=== PATIENT | male | born 1990 | race Caucasian/White ===

== ENCOUNTER 2019-08-13 21:54 | Emergency (ER) | payer BC, SELFPAY ==
--- NOTE | ~2019-08-13 | XR_ITS ---
EXAMINATION: XR knee LT min 4V DATE: 08/13/2019 22:15 INDICATION: Left knee injury and pain. TECHNIQUE: 4 views of left knee were obtained. COMPARISON: None. FINDINGS: There is a displaced fracture fragment in the intercondylar notch. There is mild osteoarthr itis of patellofemoral compartment. There is a large knee joint effusion. IMPRESSION: 1. Displaced fracture fragment in the intercondylar notch, which may be from the intercondylar eminen ce of proximal tibia. 2. Mild left knee osteoarthritis. 3. Large left knee joint effusion. Reviewed, dictated and finalized at location A. IMPRESSION: 1. Displaced fracture fragment in the intercondylar notch, which may be from th e intercondylar eminence of proximal tibia. 2. Mild left knee osteoarthritis. 3. Large left knee joint effusion.
[2019-08-13 21:58] VITALS: BP 158/96; PULSE 120; RESP 20; TEMP 36.6; O2SAT 95
--- NOTE | 2019-08-13 23:23 | ED.LOWEXIN ---
HPI - Extremity Injury (Lower) General Chief Complaint: Extremity Injury, Lower Stated Complaint: Knee Time Seen by Provider: 08/13/19 22:43 Source: RN notes reviewed History of Present Illness HPI Narrative: Patient presents emergency department from home for left knee pain. Patient states that just prior to arrival his dog he got out he was out looking for his dog in the [place] when he stepped into a hole twisting his left knee. He states that time he had immediate pain. He states he felt like his knee popped out of place and then popped back into place. States that a history of similar episode while playing soccer approximately 10 years ago. States that since that time he has had pain with walking on his knee he states it hurts to fully extend his knee or to flex his knee denies any other trauma or injury he denies any numbness or tingling in the extremity Related Data Allergies Allergy/AdvReac Type Severity Reaction Status Date / Time Penicillins Allergy Unknown Unknown Verified 08/13/19 22:02 Sulfa (Sulfonamide Allergy Unknown Unknown Verified 08/13/19 22:02 Antibiotics) Review of Systems Review of Systems: Narrative: Gen.: Denies fevers or chills Musculoskeletal: See HPI Neuro: Denies numbness, tingling, weakness Skin: Denies rash Endo: Denies DM PMFSH Past Medical History Medical History (Updated 08/13/19 @ 23:29 by Eleazar Burdick DO) Patient denies significant medical history Family History Family History (Updated 08/01/14 @ 15:51 by DOCTOR UNKNOWN) Other Cerebrovascular accident Diabetes mellitus Family history of arthritis Family history of malignant neoplasm Hypertension Social History Social History Smoking status: Never smoker Second hand tobacco smoke exposure: No Alcohol intake: never Gender identity (if verbalized by the patient): Male Exam Narrative: Exam Narrative: APPEARANCE: No acute distress, nontoxic, resting in bed Eyes: EOMI HEENT: Normocephalic, atraumatic, RESPIRATORY: No respiratory distress MUSCULOSKELETAl: Tender palpation of the left anterior lateral medial knee swelling present with no ecchymosis pain with flexion greater than 45 degrees in full extension no tenderness of the left ankle or hip, dorsalis pedis pulse 2+ left lower extremity neurovascular intact NEURO: Awake and alert. Following commands, speech normal, no focal deficits SKIN:: Warm, dry. Normal Color no rash or lesions Course Course Emergency Course: Discussed with Dr. Shukla presentation and work-up. This time recommends Barrett wrap and crutches with follow-up as an outpatient Discussed with patient results of workup and diagnosis. Discussed need for follow-up with primary care, proper use of medication, and reasons to return to the emergency department. Patient understands and agrees to current treatment plan Vital Signs Vital signs: Vital Signs Temperature 97.8 F 08/13/19 21:58 Pulse Rate 120 H 08/13/19 21:58 Respiratory Rate 08/13/19 21:58 Blood Pressure 158/96 H 08/13/19 21:58 Pulse Oximetry 95 08/13/19 21:58 Temperature 97.8 F 08/13/19 21:58 Pulse Rate 120 H 08/13/19 21:58 Respiratory Rate 08/13/19 21:58 Blood Pressure 158/96 H 08/13/19 21:58 Pulse Oximetry 95 08/13/19 21:58 MDM - Extremity Injury (Lower) Imaging Data Attestation: I personally reviewed and interpreted this imaging study as follows: My impression: Knee x-ray reviewed by myself shows no acute process Discharge Plan Discharge Clinical Impression: Left knee sprain Patient Disposition: Home, Self-Care Condition: Stable Instructions: Antibiotic Form, Knee Pain (ED) Additional Instructions: Return for increasing pain numbness or tingling in the extremity or any other symptoms of concern Prescriptions: New ibuprofen [IBU] 600 mg tablet 600 mg PO Q6H PRN (Reason: pain) Qty: 20 RF: 0 Follow-up/Refe
[2019-08-14 00:04] VITALS: BP 126/59; PULSE 102; RESP 16; O2SAT 99
--- NOTE | 2019-08-14 08:32 | PC.NURSE ---
0776 CONTACTED PT @[phone] INFORMED OF NEED TO RETURN TO ED FOR KNEE IMMOBILIZER PER OVER-READ OF XRAY.
--- NOTE | 2019-08-14 09:05 | PC.NURSE ---
patient arrives in the ED after receiving a call to come back for a knee immobilizer per radiologist. Patient arrives at 0900 and knee immoblizer placed on left knee with patient education provided. Patient has no questions or concerns at this time.
== END 2019-08-14 00:06 | disposition home or self-care (01) ==
PROVIDERS: Emergency Provider Emergency Medicine
DX: S83.92XA Sprain of unspecified site of left knee, initial encounter (principal); X50.9XXA Other and unspecified overexertion or strenuous movements or postures, initial encounter
CPT/HCPCS: 73564; 99283; A9270

== ENCOUNTER 2019-08-27 12:41 | Outpatient (CLI) | payer BC, SELFPAY ==
--- NOTE | ~2019-08-27 | MR_ITS ---
EXAMINATION: MR knee LT wo con DATE: 08/27/2019 13:49 INDICATION: Left knee injury and pain and swelling. TECHNIQUE: Magnetic resonance imaging (MRI) of the left knee was performed without intravenous contra st. Sequences included axial PD-weighted FS FSE, coronal PD-weighted FSE and PD-weighted FS FSE, sagi ttal PD-weighted FSE, and sagittal T2-weighted FS FSE. COMPARISON: Left knee radiograph 08/14/2019 FINDINGS: Medial compartment: Medial meniscus is normal. There is cartilage surface irregularity of tibial condyle and femoral cond yle. Lateral compartment: Lateral meniscus is normal. There is shallow partial-thickness cartilage loss of femoral condyle medi ally. Tibial cartilage is normal. Patellofemoral compartment: Patellar cartilage is normal. Trochlear cartilage is normal. Ligaments and tendons: There is an avulsion fracture of the intercondylar eminence of proximal tibia at the footplate of the anterior cruciate ligament with 7 mm displacement. Posterior cruciate ligament is intact. Medial col lateral ligament and lateral collateral ligament complex are intact. There is mild patellar tendinopa thy. Fluid: There is a large lipohemarthrosis. Osseous/other: There is a subchondral fracture of lateral tibial condyle involving the posterior articular surface w ith less than 2 mm depression. There is bone marrow edema involving posterior aspects of medial and l ateral tibial condyles. There is bone marrow edema involving the notch of lateral femoral condyle. IMPRESSION: 1. Displaced avulsion fracture of intercondylar eminence at the footplate of the anterior cruciate li gament. 2. Fracture of posterior aspect of lateral tibial plateau with less than 2 mm depression. 3. Mild chondrosis of medial and lateral compartments. 4. Large lipohemarthrosis. Reviewed, dictated and finalized at location A. IMPRESSION: 1. Displaced avulsion fracture of intercondylar eminence at the footplate of th e anterior cruciate ligament. 2. Fracture of posterior aspect of lateral tibial plateau with less than 2 mm d epression. 3. Mild chondrosis of medial and lateral compartments. 4. Large lipohemarthrosis.
== END 2019-08-27 12:42 | disposition home or self-care (01) ==
PROVIDERS: PCP Family Medicine; Visit Provider Orthopaedic Surgery
DX: S89.90XA Unspecified injury of unspecified lower leg, initial encounter (principal); S82.092A Other fracture of left patella, initial encounter for closed fracture; S82.202A Unspecified fracture of shaft of left tibia, initial encounter for closed fracture; M22.2X2 Patellofemoral disorders, left knee; M25.062 Hemarthrosis, left knee
CPT/HCPCS: 73721

== ENCOUNTER 2019-09-02 00:41 | Outpatient (CLI) | payer BC, SELFPAY ==
[2019-09-04 17:14] LABS: SARS-CoV-2 RNA PCR Negative
== END 2019-09-02 00:42 | disposition home or self-care (01) ==
LOC: ANHCOVIDDT 00:41
PROVIDERS: PCP Family Medicine; Visit Provider Orthopaedic Surgery
DX: Z01.818 Encounter for other preprocedural examination (principal); Z11.59 Encounter for screening for other viral diseases
CPT/HCPCS: 87635; C9803; U0003

== ENCOUNTER 2019-09-04 08:42 | Outpatient (CLI) | payer BC, SELFPAY ==
[2019-09-04 17:14] LABS: SARS-CoV-2 RNA PCR Negative
== END 2019-09-04 08:43 | disposition home or self-care (01) ==
LOC: ANHCOVIDDT 08:42
PROVIDERS: PCP Family Medicine; Visit Provider Orthopaedic Surgery
DX: Z01.812 Encounter for preprocedural laboratory examination (principal); Z11.59 Encounter for screening for other viral diseases
CPT/HCPCS: 87635; C9803; U0003

== ENCOUNTER 2019-09-05 00:57 | Day surgery (SDC) | payer BC, SELFPAY ==
[2019-08-31 13:09] VITALS: BMI 27.1
--- NOTE | 2019-09-04 14:28 | P.PNAN_ITS ---
Anes - Initial Pre Proc Eval Procedure: Operation Date: 09/05/19 10:00 Proposed Procedures p Left Knee Open Reduction Internal Fixation Of Tibial [place] Fracture - Jason Shukla MD Date/Time: 09/04/19 14:28 Surgeon: Jason Shukla MD Pre Op Diagnosis: Left Tibial [place] Fracture Patient Data Age: 29 Gender: M Height: 1.8 m Weight: 88.45 kg Allergies Allergy/AdvReac Type Severity Reaction Status Date / Time Penicillins Allergy Unknown Unknown Verified 09/05/19 08:33 Sulfa (Sulfonamide Allergy Unknown Unknown Verified 09/05/19 08:33 Antibiotics) Home Medications Medication Instructions Recorded Confirmed Type ibuprofen [IBU] 600 mg PO Q6H PRN #20 tablet 08/13/19 08/31/19 Rx tramadol 50 mg tablet 50 mg PO Q6H PRN #30 tablet 08/14/19 08/31/19 Rx chlorhexidine gluconate 4 % 1 applic TOPICAL ONCE #237 ml 08/31/19 08/31/19 Rx topical liquid Patient hx anesthesia problems: none Family hx anesthesia problems: none PMFSH Past Medical History Medical History (Updated 09/05/19 @ 08:41 by Kofi Travis MD) Anxiety Depression Obesity Patient denies significant medical history Social History Social History Smoking status: Never smoker Second hand tobacco smoke exposure: No Alcohol intake: never Gender identity (if verbalized by the patient): Male Anes - Eval Final PreProcedure Day of Procedure 09/04/19 14:28 Patient weight: overweight Heart: regular rate and rhythm Lungs: clear to auscultation and normal air movement Airway: Mallampati scale class II Neurological: alert and oriented Last oral intake: >/= 8 hours ASA classification: II Emergent: no Anesthetic plan: proceed Anesthesia type and monitoring: general LMA Informed Consent: The patient's anesthetic plan and its attendant risks and benefits were discussed with the patient/family/POA. Questions were solicited and answers provided to the satisfaction of the patient/family/POA.
[2019-09-05] VITALS (7 sets, daily range): BP systolic 122–135; BP diastolic 62–92; PULSE 89–103; RESP 12–20; TEMP 36.5–37.1; O2SAT 96–100
--- NOTE | 2019-09-05 07:29 | WPDHPUPDATE1 ---
History and Physical Update Update Date/Time: 09/05/19 07:29 History and Physical has been reviewed, including an updated exam of the patient. There are NO changes in the patient's condition. Risks, benefits, and alternatives have been discussed and questions answered. Patient agrees to proceed with procedure.
[2019-09-05] MEDS: LACTATED RINGERS 1,000 ML 30 ML IV CONT ×2 (08:45→14:26)
--- NOTE | 2019-09-05 09:28 | WPDANESPNB ---
Anes - Peripheral Nerve Block Date/Time: 09/05/19 09:28 I have discussed with the patient/family/POA the placement of a peripheral nerve block for post-operative pain management, including associated risks, benefits, complications, and side effects. Alternative methods of post-operative analgesia were detailed. Questions were solicited and answers provided to the satisfaction of the patient/family/POA. Time-Out: A pre-procedural Time-Out was completed immediately before starting the procedure and confirmed: Patient Identification, Site, Procedure, Patient Position and the Availability of Requisite Equipment. Clinical Indications: Acute post-operative pain management requested by the operative surgeon. Nerve Block Insertion Note Anes-nerve block: femoral (20cc) left Patient position: supine Skin prep: chlorhexidine Needle: 22 gauge, stimulating, insulated echogenic needle. Needle length: 80 mm Technique: ultrasound (in plane) Injectate: bupivacaine 0.5% with epi 5 mcg/ml (20cc) Observations: tolerated well Complications: none Procedure start time:: 925 Procedure end time:: 930
--- NOTE | 2019-09-05 10:24 | WPDHPUPDATE1 ---
History and Physical Update Update Date/Time: 09/05/19 10:24 History and Physical has been reviewed, including an updated exam of the patient. There are NO changes in the patient's condition. Risks, benefits, and alternatives have been discussed and questions answered. Patient agrees to proceed with procedure. THE PATIENT WILL UNDERGO AND ARTHROSCOPIC ASSISTED LEFT TIBIAL EMINENCE ORIF
[2019-09-05] MEDS: ceFAZolin 2 GM/D5W 50 ML 2 GM/50 ML BAG IVPB (10:38)
--- NOTE | 2019-09-05 14:27 | P.OPB_ITS ---
Procedure Note - Brief Procedure Note - Brief Date of procedure: 09/05/19 Pre-op diagnosis: Left Tibial [place] Fracture Post-op diagnosis: same Procedure performed: ARTHROSCOPIC ASSISTED ORIF LEFT TIBIAL EMINENCE FRACTURE Anesthesia: GLMA Surgeon: Jason Shukla MD Estimated blood loss (mL): 50 Drains: No Complications: No immediate complications Condition: stable Disposition: PACU
--- NOTE | 2019-09-05 22:56 | OP_ITS ---
DATE OF PROCEDURE: 09/05/2019 PREOPERATIVE DIAGNOSIS: Left knee tibial eminence fracture. POSTOPERATIVE DIAGNOSIS: Left knee tibial eminence fracture. PROCEDURE: Arthroscopic assisted open reduction internal fixation of a left tibial eminence fracture. ANESTHESIA: General. COMPLICATIONS: None. INDICATIONS: This is a 29-year-old male who fell while hiking on a flexed knee. He then came in the office, was referred to the office for severe pain. He was diagnosed with a tibial eminence fracture. He was indicated for open reduction internal fixation with arthroscopy assisted procedure. PROCEDURE: Patient was taken to the operative room in stable condition. Prior to receiving anesthesia, he was found to have a flexed left knee and inability to extend the knee completely. Once he was intubated, the left knee was checked and Monica's maneuver was performed and it was found that he had significant laxity in the ACL as compared to the right knee, and then the left lower extremity was prepped and draped sterilely from the toes to the thigh. Superior medial portal was used for the outflow cannula. Inferolateral port was used for the camera. The camera was introduced. There was a huge hemarthrosis. The knee was irrigated thoroughly to remove the hemarthrosis and then the patellofemoral joint was identified. There was no significant chondromalacia. There were some loose bodies within the knee joint as well. They appeared to be pieces of bone. The medial compartment was entered. There was no evidence of medial meniscus tear. The lateral compartment was entered and there was no evidence of lateral meniscus tear. The intercondylar notch then was entered and there was a large tibial eminence fracture that was displaced. There was a large hematoma. There was some inflammatory tissue which appeared to be synovitis and there was also some scarring adjacent to the fracture. The hematoma then was evacuated from the fracture site. The inflammatory tissue was debrided with a shaver until the tibial eminence was completely devoid of any scar tissue. It was preliminarily reduced and when it was reduced, the ACL was identified and it was examined. The ACL also was torn and had a partial tear and had some ecchymosis throughout, but it appeared to be stable. So once that was performed, then a Scorpion type suture passer was placed through the medial portal and 2 sutures made of Arthrex #2 FiberWire were placed through the bulk of the ACL and they had a good bite. Once that was performed, the tibial eminence fracture was reduced and then a guide pin was placed through the tibia in a retrograde fashion holding the piece in reduction. The reduction showed that the anterior part of the eminence was not present. There was destruction of the anterior part of the eminence. Once that was performed, an incision was made just medial to the tibial tubercle and 1 cm distal incision was made through the skin down to the subcutaneous tissues. The bleeders were cauterized. An ACL guide pin was placed through the medial portal and the tibial guide was placed up against the tibia and then a 3.2 drill bit was placed through the ACL guide and exiting about the middle of the tibial eminence fracture fragment. Once that was performed, then using suture passers, the 2-0 FiberWire was passed through the drill hole, which then incorporated the sutures and the tibial eminence fracture was pulled down. Direct visualization showed that the fracture was reduced to anatomic position and that there was a moderately-sized anterior piece of bone that was devoid. The knee was taken through range of motion. Monica's and drawer tests were performed and it was found that the fragment that was connected to the ACL was stable. Once that was performed, then in appr
== END 2019-09-05 15:46 | disposition home or self-care (01) ==
PROVIDERS: PCP Family Medicine; Visit Provider Orthopaedic Surgery
PROC: (CPT 27540; principal; 2019-09-05 10:00)
DX: S82.202A Unspecified fracture of shaft of left tibia, initial encounter for closed fracture (principal); S83.512A Sprain of anterior cruciate ligament of left knee, initial encounter; W19.XXXA Unspecified fall, initial encounter; Y93.01 Activity, walking, marching and hiking; G89.18 Other acute postprocedural pain; F41.8 Other specified anxiety disorders; E66.9 Obesity, unspecified; Z68.30 Body mass index [BMI] 30.0-30.9, adult
CPT/HCPCS: 27540; 64447; J0131; J0690; J1100; J2250; J2405; J2704; J3010; J7120

== ENCOUNTER 2021-10-26 12:37 | Emergency (ER) | payer BC, SELFPAY ==
--- NOTE | 2021-10-26 12:47 | ED.ABDPAIN ---
HPI - Abdominal Pain General Stated Complaint: Abdominal pain Time Seen by Provider: 10/26/21 12:55 Source: patient Mode of arrival: ambulatory Limitations: no limitations History of Present Illness HPI narrative: Tim is a 31-year-old male patient presenting to the clinic today with complaints of right upper abdominal pain x1 week. He reports the pain is dull and feels as though there is a pressure that gets worse after he is eating. His last bowel movement was last night and was soft. He denies any blood in the stool. He denies any fever or chills. He denies any injury to his right side. He does have some nausea and decrease in appetite. When asked about urinary symptoms he states he does have urinary frequency and urgency. He reports that he does drink alcohol once a week. Related Data Home Medications Medication Instructions Recorded Confirmed No Home Medications 05/06/20 05/06/20 Allergies Allergy/AdvReac Type Severity Reaction Status Date / Time Penicillins Allergy Unknown Unknown Verified 10/26/21 12:51 Sulfa (Sulfonamide Allergy Unknown Unknown Verified 10/26/21 12:51 Antibiotics) Review of Systems Review of Systems: Pertinent positives per HPI. Patient denies any fever, chills, rash, headache, visual changes, dizziness, cough, runny nose, sore throat, shortness of breath, chest pain, palpitations, vomiting, diarrhea, constipation, or any urinary issues. PMFSH Past Medical History Medical History (Updated 10/26/21 @ 13:11 by George Story APRN) Anxiety Depression Obesity Patient denies significant medical history Family History Family History Other Cerebrovascular accident Diabetes mellitus Family history of arthritis Family history of malignant neoplasm Hypertension Social History Social History Second hand tobacco smoke exposure: No Alcohol intake: never Gender identity (if verbalized by the patient): Male Comments At the time of my signature, I reviewed and agree with the nursing past medical, surgical, social, and family history. There is no relevant family history pertinent to the patient complaint. Exam Narrative: General: Well-developed, well nourished, in no apparent distress. Head: Normocephalic, atraumatic. Cardio: Regular rate and rhythm, s1 and s2 normal, no murmur appreciated. Resp: Clear to auscultation bilaterally, no rhonchi, rales, wheezing or rubs. Abdomen: Soft, pliable, bowel sounds present in all quadrants, tender to palpation over the right upper quadrant, no organomegly, no CVAT tenderness. Course Course Emergency Course: Portions of this record may have been created with voice recognition software. Level of Care: Express Care Visit Vital Signs Vital signs: Vital signs reviewed MDM - Abdominal Pain MDM Narrative Medical decision making narrative: At the time of visit patient is resting comfortably on the exam table. UA obtained Differential Diagnosis Differential diagnosis: Likely abdominal pain, pancreatitis and other (Cholecystitis, gallstones, cirrhosis) Discharge Plan Discharge Clinical Impression: Right upper quadrant abdominal pain Patient Disposition: Home, Self-Care Condition: Stable Instructions: Antibiotic Form, Abdominal Pain (ED) Additional Instructions: UA obtained and was negative for any signs of infection, blood, ketones, or bilirubin. Increase fluids and stay well-hydrated May take Tylenol/Motrin as needed for pain or for Eat a bland diet-avoid spicy, citrus, greasy, or fatty foods Follow-up with your PCP tomorrow for further evaluation-labs and right upper quadrant ultrasound Go to the emergency room if symptoms worsen-high fever not controlled by Tylenol or Motrin, chest pain, shortness of breath, lethargy, nausea and vomiting, or worsening of abdominal pain.
[2021-10-26 13:00] VITALS: BP 129/77; PULSE 78; RESP 24; TEMP 36.5; O2SAT 100
== END 2021-10-26 13:38 | disposition home or self-care (01) ==
PROVIDERS: Emergency Provider Nurse Practitioner Family; PCP Family Medicine
DX: R10.11 Right upper quadrant pain (principal); E66.9 Obesity, unspecified; Z68.28 Body mass index [BMI] 28.0-28.9, adult
CPT/HCPCS: 81003; 99212; G0463

== ENCOUNTER → 2021-11-03 08:01 | Outpatient (CLI) | payer BC, SELFPAY ==
--- NOTE | ~2021-11-03 | US_ITS ---
EXAMINATION: US right upper quadrant DATE: 11/03/2021 08:25 INDICATION: Right upper quadrant pain TECHNIQUE: Multiple grayscale and Doppler ultrasound images of the abdomen were obtained. COMPARISON: None available FINDINGS: Bowel gas obscures visualization of the pancreas. The visualized portions of the pancreas a re unremarkable. The liver is normal with normal echogenicity and echotexture. No surface nodularity. Normal hepatopetal flow in the main portal vein. The gallbladder is normal with no abnormal wall thi ckening, pericholecystic fluid or stones. The normal common bile duct measures 4 mm. There was no son ographic Ramos sign. IMPRESSION: 1. Normal sonographic study of the gallbladder. Reviewed, dictated and finalized at location B.
== END ==
PROVIDERS: PCP Physician Assistant Medical; Visit Provider Physician Assistant Medical
DX: R10.11 Right upper quadrant pain (principal)
CPT/HCPCS: 76705

== ENCOUNTER 2022-05-29 16:33 | Emergency (ER) | payer BC, SELFPAY ==
[2022-05-29] VITALS (15 sets, daily range): BP systolic 133–145; BP diastolic 83–91; PULSE 84–99; RESP 15–22; TEMP 36.7; O2SAT 98–100
--- NOTE | ~2022-05-29 | CT_ITS ---
EXAMINATION: CT BRAIN W/O DATE: 05/29/2022 16:55 INDICATION: Left-sided numbness TECHNIQUE: Computed tomography (CT) of the head was performed without intravenous contrast. The dose- length product was 605.33 mGy-cm. Automated exposure control and iterative reconstruction technique w ere employed. COMPARISON: No prior studies for comparison. FINDINGS: Normal brain parenchymal volume for age. Normal brewster-white differentiation. No acute intrac ranial hemorrhage, infarction, mass or mass effect. No ventriculomegaly or midline shift. Midline sagittal images demonstrate a normal corpus callosum, c raniovertebral junction and sella turcica. Basilar cisterns are patent. There is mucosal thickening of the right maxillary sinus. Mastoids are pneumatized. No depressed skul l fracture. IMPRESSION: 1. No acute intracranial abnormality. Reviewed, dictated and finalized at location A.
--- NOTE | 2022-05-29 16:47 | ECG_ITS ---
Measurements Intervals [place] Rate: 89 P: 34 SD: 130 QRS: 50 QRSD: 95 T: -5 QT: 350 QTc: 427 Interpretive Statements SINUS RHYTHM NONSPECIFIC T-WAVE ABNORMALITY- INFERIOR LEADS BASELINE ARTIFACT- I, II, III BORDERLINE ECG NO PREVIOUS ECG AVAILABLE FOR COMPARISON Electronically Signed On 05-30-2022 8:00:34 CDT by Harshad Burch D.O.
--- NOTE | 2022-05-29 17:08 | ED.NEUROSD ---
HPI - Neuro Symptoms/Deficit General Chief Complaint: Neuro Symptoms/Deficit <MARGE Carter Last Filed: 05/30/22 02:33> Stated Complaint: i might be having stroke <MARGE Carter Last Filed: 05/30/22 02:33> Time Seen by Provider: 05/29/22 17:01 <MARGE Carter Last Filed: 05/30/22 02:33> Source: patient <MARGE Carter Last Filed: 05/30/22 02:33> Mode of arrival: ambulatory <MARGE Carter Last Filed: 05/30/22 02:33> Limitations: no limitations <MARGE Carter Last Filed: 05/30/22 02:33> History of Present Illness HPI Narrative: Patient is a 32 y/o male, with a PMHx of anxiety and depression, who presents to the ED with c/o numbness to the left side of his body. Patient reports he felt fine this morning and took his son to therapy, ran some errands, and then took his son to school. Around 145 pm, he states he felt suddenly extremely tired. He took a nap and woke up at 305 pm at which point he noticed numbness and tingling in the left side of his body. He states the numbness started on the left side of his face and tongue down to his left foot. He was able to move about normally and denied noticing significant weakness. He then noticed slight blurry vision while driving to [place] pick[place] his son. Unsure if it was unilateral or bilateral. He states he had slight pressure in the left side of his head, as well. Denied any vision loss, eye pain, slurred speech, dizziness, chest pain, difficulty breathing, nausea, vomiting, incontinence, abdominal pain, recent illness/cough/cold symptoms, fevers. Patient has never had similar sx's before. He denies significant FHx of CVA. States his sister has Hx of migraines. Patient does mention he missed a turn while driving his son to therapy, which is abnormal for him as this is a common route for him to drive. He also states he felt slightly confused trying to slide his credit card while checking out at the grocery store. <Montserrat Quinn PA-C - Last Filed: 05/30/22 02:33> Related Data Allergies/Adverse Reactions: Allergies Allergy/AdvReac Type Severity Reaction Status Date / Time Penicillins Allergy Unknown Unknown Verified 05/29/22 16:34 Sulfa (Sulfonamide Allergy Unknown Unknown Verified 05/29/22 16:34 Antibiotics) <Montserrat Quinn PA-C - Last Filed: 05/30/22 02:33> Review of Systems Review of Systems: CONSTITUTIONAL: Denies fever, chills, or sweats. EYES: See HPI. ENT: Denies rhinorrhea, congestion, sore throat. CARDIOVASCULAR: Denies chest pain. RESPIRATORY: Denies cough or dyspnea. GASTROINTESTINAL: Denies abdominal pain, nausea, vomiting. MUSCULOSKELETAL: Denies back pain, joint pain, or myalgia. NEUROLOGIC: See HPI. <Montserrat Quinn PA-C - Last Filed: 05/30/22 02:33> All systems reviewed & are unremarkable except as noted in HPI and below <Montserrat Quinn PA-C - Last Filed: 05/30/22 02:33> PMFSH Past Medical History Medical History: Medical History Anxiety Depression <Montserrat Quinn PA-C - Last Filed: 05/30/22 02:33> Surgical History Surgical History: Surgical History History of knee surgery <Montserrat Quinn PA-C - Last Filed: 05/30/22 02:33> Family History Family History: Family History Other Cerebrovascular accident Diabetes mellitus Family history of arthritis Family history of malignant neoplasm Hypertension <Montserrat Quinn PA-C - Last Filed: 05/30/22 02:33> Social History Social History: Social History Years smoked: 2 Smoking status: Never smoker Second hand tobacco smoke exposure: No Smoking end date: 03/15/11 Alcohol int
[2022-05-29 17:13] LABS: Basophils Absolute Auto 0.1 K/mm3 (0.0-0.1); Basophils Percent Auto 0.9 % (0.2-1.2); Eosinophils Absolute Auto 0.3 K/mm3 (0-0.3); Eosinophils Percent Auto 3.7 % (0-4.4); Hematocrit 43.5 % (42.0-52.0); Hemoglobin 14.6 g/dL (14.0-18.0); Immature Granulocyte Absolute 0.01 K/mm3 (0.00-0.031); Immature Granulocyte Percent A 0.1 % (0-0.5); Lymphocytes Absolute Auto 2.18 K/mm3 (0.9-3.2); Lymphocytes Percent Auto 31.3 % (18.3-44.2); Mean Corpuscular HGB Conc 33.6 g/dl (32-36); Mean Corpuscular Hemoglobin 28.7 pg (26-34); Mean Corpuscular Volume 85.6 fl (80-100); Mean Platelet Volume 8.5 fl (7.4-10.4); Monocytes Absolute Auto 0.7 K/mm3 (0.1-0.6); Monocytes Percent Auto 10.6 % (2.6-8.5); Neutrophils Absolute Auto 3.7 K/mm3 (1.3-6.7); Neutrophils Percent Auto 53.4 % (45.5-73.1); Platelet Count Result 314 k/mm3 (150-375); Red Blood Count 5.08 M/mm3 (4.6-6.20); Red Cell Distribution Width 12.4 % (11.5-14.5)
[2022-05-29 17:22] LABS: Alanine Aminotransferase 55 U/L (6-50); Albumin Level 4.6 g/dL (3.5-5.1); Alkaline Phosphatase 70 U/L (38-126); Anion Gap 6 mmol/L (8-16); Aspartate Amino Transferase 40 U/L (17-59); Bilirubin,Total 0.6 mg/dL (0.2-1.3); Blood Urea Nitrogen 11 mg/dL (9-20); Calcium 9.1 mg/dL (8.4-10.2); Carbon Dioxide 30 mmol/L (22-30); Chloride 98 mmol/L (98-107); Estimated CRCL calculation 124 ml/min; Estimated Glomerular Filt Rate > 60; Glucose 98 mg/dL (65-110); Potassium 3.7 mmol/L (3.4-5.0); Sodium 134 mmol/L (137-145)
[2022-05-29 17:24] LABS: Glucose Point of Care 94 mg/dl (65-105)
[2022-05-29 17:27] LABS: Prothrombin Time 12.5 Seconds (11.1-14.7)
[2022-05-29 17:34] LABS: Troponin I < 0.012 ng/mL (0.000-0.034)
--- NOTE | 2022-05-29 19:25 | PC.NURSE ---
Report received from DEEPTHI Nicole. Assumed care of patient at this time.
== END 2022-05-29 20:00 | disposition home or self-care (01) ==
PROVIDERS: Emergency Medicine; Emergency Provider Physician Assistant; PCP Family Medicine
DX: R20.2 Paresthesia of skin (principal); H53.9 Unspecified visual disturbance; F41.9 Anxiety disorder, unspecified; F32.A Depression, unspecified; Z87.891 Personal history of nicotine dependence; R94.31 Abnormal electrocardiogram [ECG] [EKG]
CPT/HCPCS: 36415; 70450; 80053; 82948; 83735; 84484; 85025; 85610; 85730; 93005; 99284

== ENCOUNTER 2023-12-24 14:37 | Outpatient (CLI) | payer BC, SELFPAY ==
[2023-12-24 15:29] LABS: Influenza A QL RT-PCR Negative (Negative); Influenza B QL RT-PCR Negative (Negative); RSV RNA, RT-PCR Negative (Negative); SARS-CoV-2 RNA PCR Negative (Negative)
== END 2023-12-24 14:38 | disposition home or self-care (01) ==
PROVIDERS: PCP Family Medicine; Visit Provider Family Medicine
DX: J06.9 Acute upper respiratory infection, unspecified (principal)
CPT/HCPCS: 87637

== ENCOUNTER 2024-07-22 14:21 | Emergency (ER) | payer BC, SELFPAY ==
--- NOTE | 2024-07-22 14:25 | ED_ITS ---
HPI - Eye Problem General Chief complaint: Eye Problems Stated complaint: Left Eye Irritation Time Seen by Provider: 07/22/24 14:29 Source: patient, RN notes reviewed and old records reviewed Mode of arrival: ambulatory Limitations: no limitations History of Present Illness HPI Narrative: 34-year-old male presents to the [facility] full left eye upper lid swelling. Symptoms started on morning, 2 days ago. Has tried OTC eye drops without relief. r 20/25 l 20/20 Related Data Home Medications ?Medication ?Instructions ?Recorded ?Confirmed ?Last Taken ?Type syringe with needle 3 mL 21 gauge 07/22/24 07/22/24 Unknown History x 1 1/2 (BD Luer-Joaquim Syringe) testosterone cypionate 200 mg/mL mg 07/22/24 Unknown History intramuscular oil Allergies Allergy/AdvReac Type Severity Reaction Status Date / Time Penicillins Allergy Unknown Unknown Verified 07/22/24 14:23 Sulfa (Sulfonamide Allergy Unknown Unknown Verified 07/22/24 14:23 Antibiotics) Review of Systems Review of Systems: All systems reviewed & are unremarkable except as noted in HPI and below Constitutional: Constitutional: Reports no additional constitutional complaints Eyes: Eyes: Reports as per HPI ENT: Reports system reviewed and no additional complaints, except as documented Cardiovascular: Cardiovascular: Reports no additional cardiovascular complaints, Denies chest pain and Denies dyspnea Respiratory: Respiratory: Reports no additional respiratory complaints, Denies chest congestion, Denies cough and Denies dyspnea Musculoskeletal: Musculoskeletal: Reports no additional musculoskeletal complaints Integumentary/Breasts: Skin/Breast: Reports system reviewed and no additional complaints, except as docu PMFSH Past Medical History Medical History Depression Anxiety Surgical History Surgical History History of knee surgery Family History Family History Other Cerebrovascular accident Diabetes mellitus Family history of arthritis Family history of malignant neoplasm Hypertension Social History Social History Years smoked: 2 Smoking status: Never smoker Second hand tobacco smoke exposure: No Smoking end date: 03/15/11 Alcohol intake: current Alcohol use details: SOCIALLY Substance use: never Substance use type: does not use Lack of Transportation: No Lack of Food: Never True Current Housing: I Have Housing Concerned About Future Housing: No Difficulty Paying Gas/Electric Bills: No Difficulty Paying for Meds: No Currently Unemployed: No Education: Trade/Vocational Certificate Difficulty w/ Childcare or Family Care: No Living arrangements: with family Gender identity (if verbalized by the patient): Male Spiritual care concerns: No Agree to blood products: Yes Comments At the time of my signature, I reviewed and agree with the nursing past medical, surgical, social, and family history. There is no relevant family history pertinent to the patient complaint. Exam Const: General: cooperative, healthy appearing, comfortable, no acute distress, well developed, alert and well nourished Nutritional Appearance: well nourished Orientation/consciousness: patient oriented x3 Limitations: no limitations HENMT: Head: normal to inspection Ears: hearing grossly normal bilaterally and external ears normal Mouth: Yes Normal oral and palatal mucosa present, Y es lip normal, Yes tongue normal and Yes moist mucous membranes Eyes: General: appearance normal, both eyes and all related structures Alignment and Position: alignment normal Eyelids: eyelid abnormality left upper eyelid inflamed cyst internal lid and swelling; no crusting or scaling of lid margins Conjunctivae: conjunctivae normal Neck: Neck: normal visual inspection, full ROM, no lymphadenopathy and no me ningeal signs Chest: Chest palpation & inspection: normal inspection of the chest Resp: Effort & Inspection: normal respiratory effort and able to speak in complete sentences Auscultation: clear to auscultation bilaterally, no crackles, no rales, no rhonchi and no wheezes Cardio: Rate: regular rate Skin: General skin exam: normal color and no rashes or lesions noted Neuro: General: patient oriented x3, gait normal, moves all extremities and no meningeal signs Cognition (Neuro): normal cognition Speech: normal speech Gait exam (Neuro): Normal gait present Extrem: General: normal to inspection, full ROM, capillary refill normal and normal gait Psych: Appearance: grossly normal and well kempt Mental Status: mental status grossly normal Speech and movement: Normal speech and movement present and Clear speech present Affect: normal affect Attitude: cooperative Course Course Level of Care: Express Care Visit Vital Signs Vital signs: Vital Signs Temperature 97.9 F 07/22/24 14:29 Pulse Rate 109 H 07/22/24 14:29 Respiratory Rate 20 07/22/24 14:29 Blood Pressure 149/77 H 07/22/24 14:29 Pulse Oximetry 100 07/22/24 14:29 Oxygen Delivery Room Air 07/22/24 14:29 Temperature 97.9 F 07/22/24 14:29 Pulse Rate 109 H 07/22/24 14:29 Respiratory Rate 20 07/22/24 14:29 Blood Pressure 149/77 H 07/22/24 14:29 Pulse Oximetry 100 07/22/24 14:29 Oxygen Delivery Room Air 07/22/24 14:29 Reviewed MDM - Eye Problem MDM Narrative Medical decision making narrative: Patient sitting in exam this patient no acute distress. Patient presents with 2 day history of a stye to the left upper eyelid. No change in vision blurry vision. Patient appropriate for outpatient treatment with close follow-up. Discharge instructions reviewed with patient, as well as provided in writing per nursing staff. The instructions also include specific and strict return/GO TO THE ER as well as f/u information. All questions have been answered, and the patient deny any further questions with discharge and discharge plan. Some parts of this dictation were generated by voice recognition software and may contain typographical and/or grammatical inaccuracies. Differential Diagnosis Differential diagnosis: Likely corneal abrasion, conjunctivitis, periorbital cellulitis and other (Stye) Critical Care Time Critical Care Time Critical Care Time: No Discharge Plan Discharge Clinical Impression: Hordeolum externum (stye) Patient Disposition: Home Condition: Stable Instructions: Antibiotic Form, Stye (ED) Additional Instructions: Warm Compresses:Applying a warm, moist cloth to the affected area can help soften the stye and promote drainage. Cleanliness:Gentle cleansing with baby shampoo or mild soap and water can help prevent further irritation and infection.? Avoid Squeezing or Popping:Do not try to pop or squeeze the stye, as this can push the infection deeper and cause more problems.? You should follow-up with an eye doctor within the next 72 hours if symptoms are not improving Queta: Damon- [phone] [facility] [phone] Iron- [phone] Pete: [facility] [phone] or [phone] [facility] [phone] [facility] [phone] [facility] [phone] [facility]- [phone] Patient Language: Indian Prescriptions: New erythromycin 5 mg/gram (0.5 %) ointment 0.5 inch LEFT EYE TID 7 Days Qty: 3.5 0RF No Action testosterone cypionate 200 mg/mL oil (DME) syringe with needle [BD Luer-Joaquim Syringe] 3 mL 21 gauge x 1 1/2 syringe MISCELLANEOUS fluticasone propionate [Flonase Allergy Relief] 50 mcg/actuation spray,suspension 1 - 2 spray intranasal BID Qty: 16 1RF Rx Instructions: administer into each nostril lisdexamfetamine [Vyvanse] 30 mg capsule 30 mg PO DAILY Qty: 30 0RF Follow-up/Referrals: Jessica Vaughan MD [Primary Care Provider] - 2 Weeks ([facility] care follow up ) Time of Disposition: 14:38
[2024-07-22 14:29] VITALS: BP 149/77; PULSE 109; RESP 20; TEMP 36.6; O2SAT 100
== END 2024-07-22 14:45 | disposition home or self-care (01) ==
PROVIDERS: Emergency Provider Nurse Practitioner; PCP Family Medicine
DX: H00.014 Hordeolum externum left upper eyelid (principal)
CPT/HCPCS: 99213; G0463

== ENCOUNTER 2024-08-10 13:27 | Outpatient (CLI) | payer BC, SELFPAY ==
--- NOTE | ~2024-08-10 | CT_ITS ---
EXAMINATION: CT sinus wo con DATE: 08/10/2024 13:49 INDICATION: Deviated nasal septum TECHNIQUE: Computed tomography (CT) of the paranasal sinuses was performed without intravenous contra st. The dose-length product was 338.90 mGy-cm. Automated exposure control and iterative reconstructio n technique were employed. COMPARISON: CT dated 05/29/2022 FINDINGS: IMPRESSION: 1. EXAMINATION: CT sinus wo con DATE: 08/10/2024 13:49 INDICATION: Deviated nasal septum. TECHNIQUE: Computed tomography (CT) of the paranasal sinuses was performed without intravenous contra st. The dose-length product was 338.90 mGy-cm. Automated exposure control and iterative reconstructio n technique were employed. COMPARISON: CT dated 05/29/2022 FINDINGS: There is a mucous retention cyst of the right maxillary sinus. Paranasal sinuses and mastoi ds are pneumatized. Leftward nasal septal deviation. Ostiomeatal units are patent. IMPRESSION: 1. Mucous retention cyst measuring 2.7 x 2.3 cm, involving right maxillary antrum. 2: Leftward nasal septal deviation. Reviewed, dictated and finalized at location A. IMPRESSION: 1. EXAMINATION: CT sinus wo con DATE: 08/10/2024 13:49 INDICATION: Deviated nasal septum. TECHNIQUE: Computed tomography (CT) of the paranasal sinuses was performed with out intravenous contrast. The dose-length product was 338.90 mGy-cm. Automated exposure control and iterative reconstruction technique were employed. COMPARISON: CT dated 05/29/2022 FINDINGS: There is a mucous retention cyst of the right maxillary sinus. Parana brittney sinuses and mastoids are pneumatized. Leftward nasal septal deviation. Osti omeatal units are patent. IMPRESSION: 1. Mucous retention cyst measuring 2.7 x 2.3 cm, involving right maxillary antr um. 2: Leftward nasal septal deviation.
--- OUTSIDE RECORDS SUMMARY | 2024-08-10 13:31 | XMS_ITS | Continuity of Care Document ---
Author Organization [facility] Address [address] [place] [address] Phone Care Team Providers Care Heading Matcher And Assembler Name Role Phone Caldwell OD, Vitaly Unavailable Unavailable Procedures Procedure Date Contact Lens Hydrophilic, Spherical Tax - Medical Contact Lens Check Contact Lens Check Contact Lens Check Contact Lens Check Eye Exam & Treatment Refraction Advance Directives Directive Yes / No Effective Date File Name No Information Encounters Encounter Description Practice Location Reason(s) For Visit Diagnoses Date Provider Providers Copied on Encounter [facility], [address] [place] [address] [address], [place], [place], [id number], tel:[phone] [facility] No Information 6-201 0 Caldwell OD Vitaly. [address] , [address], [place], [address], [place]. tel:[phone] [facility], [address] [place] [address] [address], [place], [place], [id number], [place] tel:[phone] [facility] No Information 3-201 0 Caldwell OD Vitaly. [address] , [address], [place], [address], [place]. tel:[phone] [facility], [address] [place] [address] [address], [place], [place], [id number], tel:[phone] [facility] No Information Jun-2 9-201 0 Caldwell OD Vitaly. [address] , [address], [place], [place], [facility], . tel:[phone] [facility], [address] [place] [address] [address], [place], [place], [id number], tel:[phone] [facility] No Information Mar-1 2-201 0 Caldwell OD Vitaly. [address] , [address], [place], [place], [facility], . tel:[phone] [facility], [address] [place] [address] [address], [place], [place], [id number], tel:[phone] [facility] No Information Mar-0 5-201 0 Caldwell OD Viatly. [address] , [address], [place], [place], [facility], . tel:[phone] [facility], [address] [place] [address] [address], [place], [place], [id number], tel:[phone] [facility] No Information Apr- 9-201 0 Caldwell OD Vitaly. [address] , [address], [place], [place], [facility], . tel:[phone] Family History Family Member Type Diagnosis Age At Onset No Information Payers Payer name Insurance type Covered libertarian ID Milo wilson(s) [facility] CI [id number] Social History Type Description Quantity Date Captured Comments Sex Male Smoking Status No Information Chief Complaint And Reason For Visit No Information Reason For Referral Reason For Referral No Information History Of Present Illness Encounter Date Complaint History Of Prese nt Illness No Information Functional Status Date Functional Assessmen t No Information Instructions Date Instruction Additional Infor mation No Information Assessments Type Assessment Date No Information Patient Care Teams Name Effective Dates (start - stop) Status Members No Information
--- OUTSIDE RECORDS SUMMARY | 2024-08-10 13:32 | XMS_ITS | Clinical Summary ---
Author Organization [facility] Address [address] [place] [address] Care Team Providers Care Lead Massage Therapist Name Role Phone Unavailable Primary Care Provider Unavailabl e Social History Tobacco Use Types Packs/Day Years Used Date Smoking Tobacco: Never Assessed Sex and Gender Information Value Date Recorded Sex Assigned at Not on file Legal Sex Male 2:57 PM CDT Gender Identity Not on file Sexual Orientation Not on file Plan of Treatment Health Maintenance Due Date Last Done Comments DTAP/TDAP/TD VACCINES (1 - Tdap) 2010 HEPATITIS B VACCINES (1 of 3 - 19+ 3-dose series) 2010 INFLUENZA VACCINE (#1) 2023 HPV VACCINES Aged Out No longer eligi ble based on patient's age to complete this topic Insurance BCBS BLUE ACCESS/TRUE BLUE PPO
== END 2024-08-10 13:28 | disposition home or self-care (01) ==
PROVIDERS: PCP Family Medicine; Visit Provider Otolaryngology
DX: J34.1 Cyst and mucocele of nose and nasal sinus (principal); J34.2 Deviated nasal septum; J34.3 Hypertrophy of nasal turbinates; J32.9 Chronic sinusitis, unspecified
CPT/HCPCS: 70486

== ENCOUNTER 2024-09-04 00:16 | Day surgery (SDC) | payer BC, SELFPAY ==
[2024-08-31 08:12] VITALS: BMI 28.6
--- NOTE | 2024-08-31 08:13 | PC.NURSE ---
Report to the Outpatient Waiting Room, entrance under the green pavilion located off [facility], at time _0815_ on date _[id number]_. Planned Procedure Time: _1015_.? Time changes happen often and if your time is changed the preop area will call you the afternoon before. - You and your visitor will be asked to self-screen and do not enter if you have any COVID symptoms. Please call surgeon if you need to reschedule. - A mask is optional within the hospital at this time. Patients may have clear liquids (water, carbonated beverages, clear teas, apple juice) until 3 hours prior to surgery with a maximum of 20 ounces. - No food from midnight until time of surgery and no smoking, or chewing tobacco (or any form of nicotine). No chewing gum, candy or mints. Take only the following medications with a SIP of water on the morning of surgery: ___Flonase____ DO NOT STOP ANY OF YOUR OTHER PRESCRIPTION MEDICATIONS PRIOR TO SURGERY EXCEPT THE FOLLOWING Hold all vitamins and supplements for 3 days per anesthesiologist. Medications to discontinue per physician Date to take last dose Please no make-up, nail dominican, hairspray, perfume, deodorant, or body powder the day of surgery.? No jewelry (including any body piercings) or valuables the day of surgery, leave them at home.? Please take a shower or bath the night before, or the morning of, surgery with an antibacterial soap.? Wear comfortable, loose fitting clothing.? - Jewelry must be removed prior to entering the operating room.? Rings and piercings that are not removed may be cut off. - The hospital will not accept responsibility for valuables.? - Please leave all valuables, including medications, at home the day of surgery. If you are going home after surgery, a licensed hammer driver must drive you home.? - NO public transportation without another adult if you receive anesthesia. - We recommend that an adult stay with you for 24 hours following discharge. - We also recommend that you do not drive, make important decision, drink alcoholic beverages, or take any drugs that were not prescribed by your health care provider for at least 24 hours after your discharge time. Follow any additional instructions given to you from your surgeon. Telephone instructions given to __Sam___and asked if any additional questions and then verbalized understanding. Patient advised to call surgeon office or pre surgery nurse liaison [phone] if any additional questions.
[2024-09-04] VITALS (9 sets, daily range): BP systolic 116–137; BP diastolic 58–84; PULSE 72–92; RESP 12–16; TEMP 36.4–36.6; O2SAT 96–100; BMI 29.5
--- NOTE | 2024-09-04 07:23 | WPDHPUPDATE1 ---
History and Physical Update Update Date/Time: 09/04/24 07:23 History and Physical has been reviewed, including an updated exam of the patient. There are NO changes in the patient's condition. Risks, benefits, and alternatives have been discussed and questions answered. Patient agrees to proceed with procedure.
[2024-09-04] MEDS: ACETAMINOPHEN 500 MG TABLET 1000 MG PO (09:00)
[2024-09-04] MEDS: LACTATED RINGERS 1,000 ML 30 ML IV CONT ×2 (09:05→13:19)
--- NOTE | 2024-09-04 11:02 | PM.IMHP ---
H&P: HPI History of Present Illness Date/Time: 09/04/24 11:02 Chief Complaint: Presents for OR. Septal deviation, turbinate hypertrophy, crs. Review of Systems Review of Systems: All systems reviewed & are unremarkable except as noted in HPI and below PMFSH Past Medical History Medical History Depression Anxiety Surgical History Surgical History History of knee surgery Family History Family History Other Cerebrovascular accident Diabetes mellitus Family history of arthritis Family history of malignant neoplasm Hypertension Social History Social History Years smoked: 4 Smoking status: Former smoker Tobacco type: cigarettes and e-cigarettes/vaping Second hand tobacco smoke exposure: No Smoking end date: 03/15/11 Alcohol intake: current Alcohol use details: SOCIALLY Substance use: never Substance use type: does not use Lack of Transportation: No Lack of Food: Never True Current Housing: I Have Housing Concerned About Future Housing: No Difficulty Paying Gas/Electric Bills: No Difficulty Paying for Meds: No Currently Unemployed: No Education: Trade/Vocational Certificate Difficulty w/ Childcare or Family Care: No Living arrangements: with family Gender identity (if verbalized by the patient): Male Spiritual care concerns: No Agree to blood products: Yes Meds Home Medications and Allergies Home Medications ?Medication ?Instructions ?Recorded ?Confirmed ?Type fluticasone propionate 50 1 - 2 spray intranasal BID #16 mL 07/07/24 08/31/24 Rx mcg/actuation nasal spray,suspension (Flonase Allergy Relief) syringe with needle 3 mL 21 gauge 07/22/24 08/31/24 History x 1 1/2 (BD Luer-Joaquim Syringe) testosterone cypionate 200 mg/mL 200 mg subcut WEEKLY 07/22/24 08/31/24 History intramuscular oil lisdexamfetamine 30 mg capsule 30 mg PO DAILY #30 caps 08/15/24 08/31/24 Rx (Vyvanse) Allergies Allergy/AdvReac Type Severity Reaction Status Date / Time Penicillins Allergy Unknown Unknown Verified 09/04/24 09:10 Sulfa (Sulfonamide Allergy Unknown Unknown Verified 09/04/24 09:10 Antibiotics) Vital Signs Vital Signs - 24 hr 09/04/24 09:00 Temperature 36.4 C Pulse Rate 81 Respiratory Rate 16 Blood Pressure 133/79 Pulse Oximetry 99 Oxygen Delivery Room Air Exam Narrative: Right sinus disease, septal deviation, turbinate hypertrophy. Assessment and Plan Assessment and plan (1) Nasal septal deviation: Code(s): J34.2 - Deviated nasal septum Status: Acute Assessment and Plan: OR Septoplasty, turbinate reduction bilaterally, and right image guided endoscopic maxillary antrostomy. (2) Hypertrophy of both inferior nasal turbinates: Code(s): J34.3 - Hypertrophy of nasal turbinates Status: Acute (3) Chronic sinusitis: Code(s): J32.9 - Chronic sinusitis, unspecified Status: Acute
--- NOTE | 2024-09-04 11:17 | P.PNAN_ITS ---
Anes - Initial Pre Proc Eval Procedure: Operation Date: 09/04/24 10:15 Proposed Procedures p Image Guided Right Sided Endoscopic Maxillary Antrostomy with Tissue Removal, Bilateral Inferior Turbinate Reduction with Outfracture, - Chetan James MD s Septoplasty - Chetan James MD Date/Time: 09/04/24 11:17 Surgeon: Chetan James MD Pre Op Diagnosis: chronic sinusitis, deviated septum, Patient Data Age: 34 Gender: M Height: 1.8 m Weight: 96 kg Last Vital Signs Temp 97.6 F 09/04/24 09:00 Pulse 81 09/04/24 09:00 Resp 16 09/04/24 09:00 BP 133/79 09/04/24 09:00 Pulse Ox 99 09/04/24 09:00 O2 Del Method Room Air 09/04/24 09:00 Allergies Allergy/AdvReac Type Severity Reaction Status Date / Time Penicillins Allergy Unknown Unknown Verified 09/04/24 09:10 Sulfa (Sulfonamide Allergy Unknown Unknown Verified 09/04/24 09:10 Antibiotics) Home Medications ?Medication ?Instructions ?Recorded ?Confirmed ?Type fluticasone propionate 50 1 - 2 spray intranasal BID #16 mL 07/07/24 08/31/24 Rx mcg/actuation nasal spray,suspension (Flonase Allergy Relief) syringe with needle 3 mL 21 gauge 07/22/24 08/31/24 History x 1 1/2 (BD Luer-Joaquim Syringe) testosterone cypionate 200 mg/mL 200 mg subcut WEEKLY 07/22/24 08/31/24 History intramuscular oil lisdexamfetamine 30 mg capsule 30 mg PO DAILY #30 caps 08/15/24 08/31/24 Rx (Vyvanse) Patient hx anesthesia problems: none Family hx anesthesia problems: none Results Review: All pre-operative results and documents have been reviewed as part of the pre- operative evaluation. [facility] Past Medical History Medical History Depression Anxiety Surgical History Surgical History History of knee surgery Family History Family History Other Cerebrovascular accident Diabetes mellitus Family history of arthritis Family history of malignant neoplasm Hypertension Social History Social History Years smoked: 4 Smoking status: Former smoker Tobacco type: cigarettes and e-cigarettes/vaping Second hand tobacco smoke exposure: No Smoking end date: 03/15/11 Alcohol intake: current Alcohol use details: SOCIALLY Substance use: never Substance use type: does not use Lack of Transportation: No Lack of Food: Never True Current Housing: I Have Housing Concerned About Future Housing: No Difficulty Paying Gas/Electric Bills: No Difficulty Paying for Meds: No Currently Unemployed: No Education: Trade/Vocational Certificate Difficulty w/ Childcare or Family Care: No Living arrangements: with family Gender identity (if verbalized by the patient): Male Spiritual care concerns: No Agree to blood products: Yes Anes - Eval Final PreProcedure Day of Procedure 09/04/24 11:17 Patient weight: normal Lungs: normal air movement Airway: Mallampati scale class II Neurological: alert and oriented Last oral intake: >/= 8 hours ASA classification: II Emergent: no Anesthetic plan: proceed Anesthesia type and monitoring: general ETT and standard monitoring Results Review: All pre-operative results and documents have been reviewed as part of the pre- operative evaluation. Healthy, anxiety. Informed Consent: The patient's anesthetic plan and its attendant risks and benefits were discussed with the patient/family/POA. Questions were solicited and answers provided to the satisfaction of the patient/family/POA.
[2024-09-04] MEDS: ceFAZolin 2 GM/D5W 50 ML 2 GM/50 ML BAG IVPB (11:23)
[2024-09-04] MEDS: LIDO 1%/EPINEPHRINE 1:100,000 20 ML VIAL 10 ML INFILTRATE (11:48)
[2024-09-04] MEDS: OXYMETAZOLINE HCL 0.05% NAS 15 ML BTL (*BKC) 1 SPRAY NASAL (11:48)
[2024-09-04] MEDS: MUPIROCIN 2% OINT 22 GM TUBE 1 APPLIC XX (13:00)
--- NOTE | 2024-09-04 13:39 | P.OP_ITS ---
Procedure Note - Detailed Date of Procedure 09/04/24 Pre-op Diagnosis chronic sinusitis, deviated septum, turbinate hypertrophy Post-op Diagnosis Same Procedure Performed Endoscopic assisted septoplasty, bilateral inferior turbinate reduction with outfracture, right maxillary antrostomy endoscopic image guided Surgeon Chetan James MD Anesthesia General Indications See above Findings Cyst in the right max no real edema the CT scan mucosa looked fairly. Severe l eft septal deviation, severe turbinate hypertrophy Description of Procedure Patient identified consent verified the preoperative holding area. Patient brought to the operating. Time-out performed. General anesthesia was induced endotracheal tube secured the airway. Patient prepped draped position procedure confirmed 2nd time-out performed. Total 13 cc 1% lidocaine with 1 100,000 parts epinephrine injected the bilateral nasal septum inferior turbinates. [place] incision made left side with a 15 blade left nasal septal flap elevated osteotom e utilized crossover right nasal septal flap elevated. Deviated septum removed combination [place] nose forceps Jules forceps osteotome. Turbinates reduced in the submucosal plane with [employer] microdebrider 2.5 mm blade they were then outfractured with Hart elevator. Right maxillary antrostomies performed with double ball tip probe image guidance backbiter straight through cut. An image guided microdebrider. Great care was taken to not injure the turbinates orbit or septum. Copious the wounds were then copious the bilateral nasal passages then copiously irrigated sterile normal saline. [place] incision left-sided closed with 4 interrupted 5 0 fast gut sutures. Childs splints placed sutured anteriorly with 3-0 mattress nylon suture. Great care was taken to ensure that the Childs splint on the right side was lateral to the middle turbinate. I performed all dictated portions procedure care the patient back to Anesthesiology patient taken to PACU. Blood loss 25 cc. Estimated Blood Loss 25 Drains No Packing No Pathology None sent Complications No immediate complications Condition Stable Disposition PACU [facility] Billing Surgery - Charge Forward: Surgery Billing
[2024-09-04] MEDS: fentaNYL CITRATE INJ (*CRX) 100 MCG/2 ML VIAL 25 MCG IV PUSH ×3 (13:54→15:00)
[2024-09-04] MEDS: oxyCODONE HCL (*CRX) 5 MG TAB IR PO (14:56)
== END 2024-09-04 15:35 | disposition home or self-care (01) ==
PROVIDERS: PCP Family Medicine; Visit Provider Otolaryngology
PROC: (CPT 31256; principal; 2024-09-04 10:15)
PROC: (CPT 30520; 2024-09-04 10:15)
DX: J32.9 Chronic sinusitis, unspecified (principal); J34.3 Hypertrophy of nasal turbinates; J34.2 Deviated nasal septum; Z87.891 Personal history of nicotine dependence
CPT/HCPCS: 31256; 61782; 30520; 30140; A9270; J0690; J1100; J2003; J2004; J2250; J2405; J2704; J3010; J7050; J7120